=== PATIENT | male | born 1950 | race Caucasian/White ===

== ENCOUNTER → 2017-07-04 | Outpatient (CLI) | payer MEDICARE ==
[~2017-07-04] MED LIST: ATORVASTATIN CA20 MG PO; LISINOPRIL10 MG PO; OMEPRAZOLE40 MG PO; SUPER B COMPLE150 MG PO; TAMSULOSIN; [UNRECOGNIZED DRUG - OTHER]; [UNRECOGNIZED DRUG - OTHER]; [UNRECOGNIZED DRUG - OTHER] PO
--- NOTE | 2017-07-04 12:03 | Diagnostic Imaging Report ---
TECHNIQUE: Magnetic resonance imaging of the LEFT foot (midfoot and forefoot) was performed WITHOUT injected contrast. HISTORY: Plantar plate tear, metatarsal head deformity second, third, fourth, vasculitis, history of neuroma removal December 2016 COMPARISON: Left foot MRI August 14, 2016 DISCUSSION: Bone: No focal or infiltrative bone marrow replacing abnormality. No acute fracture or osteonecrosis. Mild degenerative changes during the head of the first metatarsal bone and tibial hallux sesamoid. Joints: Scattered degenerative changes, most notably moderate of the first metatarsophalangeal joint, stable in appearance. Mild varus alignment of the fifth metatarsophalangeal joint, stable. Fluid within the visualized joints is within physiologic limits. Soft Tissues: No discrete soft tissue mass (within the limitations of a nonenhanced examination) or fluid collection. Soft tissues in the region of the plantar plates appear unremarkable. Mild regional soft tissue edema centered about the interspace between the fourth and fifth metatarsophalangeal joint. IMPRESSION: 1. Mild nonspecific soft tissue edema between the fourth and fifth metatarsophalangeal joints. 2. 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 3. Stable mild varus alignment of the fifth metatarsophalangeal joint. Signed by: Dr. Bautista Flores D.O., M.M.M. on 07/04/2017 11:59 AM
== END ==
LOC: MRI 08:34
PROVIDERS: ATTEND Podiatrist
DX: I77.6 Arteritis, unspecified (principal); S96.812A Strain of other specified muscles and tendons at ankle and foot level, left foot, initial encounter; M19.072 Primary osteoarthritis, left ankle and foot; R60.9 Edema, unspecified